=== PATIENT | female | born 1980 | race Caucasian/White ===

== ENCOUNTER 2017-05-21 16:20 | Emergency (ER) | payer OTHER ==
[~2017-05-21] VITALS: Wt 68.2 kg
[2017-05-21] MEDS ORDERED: ONDANSETRON 4 MG INJ IV STA (17:58)
--- NOTE | 2017-05-21 19:36 | RADRPT ---
PROCEDURE: CT Abdomen and Pelvis without contrast CLINICAL INDICATION: Right upper quadrant and left upper quadrant pain, bilateral flank pain TECHNIQUE: Transaxial images were obtained through the abdomen and pelvis on a multi-slice scanner without the intravenous contrast administration. No oral contrast had previously been given. Sagit desean and coronal re-formations were subsequently reconstructed. One or more of the following dose reduction techniques were used: - Automated exposure control. - Adjustment of the mA and/or kV according to patient size. - Use of iterative reconstruction technique. Radiation dose: CTDIvol = 18.44 mGy; DLP = 1047.30 mGy-cm. COMPARISON: No prior studies are available for comparison. FINDINGS: Lung bases: The visualized lung bases appear unremarkable. Liver: Normal in size and in attenuation. There is no focal lesion. Gallbladder: The gallbladder is distended and there is cholelithiasis. There is no gallbladder wall thickening. Bile ducts: The intra and extrahepatic bile ducts are normal in caliber. Pancreas: Appears normal with no mass or inflammation evident. Spleen: The spleen is upper normal in size. Adrenals: Normal with no mass identified. Kidneys, ureters and bladder: The kidneys are normal in size and there is no mass, pathological calc ification, or hydronephrosis evident. There is no perinephric stranding. The ureters are normal in c aliber and no ureteroliths are identified. The bladder is poorly distended. Reproductive organs: The uterus is prominent and is lobulated in contour compatible with uterine fib roids.. A 2 cm Nabothian cyst is evident. No adnexal mass is evident. Stomach and bowel: The stomach appears unremarkable. The small bowel appears normal. Diverticuli are seen scattered through the colon but there is no evidence of bowel obstruction or inflammation. Appendix: A normal vermiform appendix is evident. Peritoneum: No free intraperitoneal fluid or air is identified. A small fat containing umbilical and bilateral inguinal hernias are evident. Aorta: Normal in caliber with no aneurysmal dilatation. IVC: Unremarkable. Lymph nodes: No pathologically enlarged nodes are identified. Osseous structures: The osseous elements appear intact. IMPRESSION: 1. Multiple gallstones are evident. There is no gallbladder wall thickening, bile duct dilatation o r pancreatic pathology evident. 2. Scattered diverticuli are seen in the colon without evidence of bowel obstruction or inflammatio n. A normal vermiform appendix is evident. 3. There is no evidence of urinary outflow obstruction or ureterolithiasis. The bladder is suboptim ally distended. 4. Prominent fibroid uterus with a 2 cm Nabothian cyst seen in the cervix. 5. There is no free intraperitoneal fluid or air. There are small fat containing umbilical and bila teral inguinal hernias. 6. The spleen is borderline enlarged. Physician Jaclyn Date Time Electronically viewed and signed by Brannon Quintana Physician on 05/21/2017 19:36 /
[2017-05-21] MEDS ORDERED: KETOROLAC 30 MG INJ IM STA (19:40)
[2017-05-21] MEDS ORDERED: KETOROLAC 30 MG INJ IV STA (19:47)
[2017-05-21] MEDS ORDERED: IBUP-1542 PO (19:50)
[2017-05-21] MEDS ORDERED: ONDA4TAB14 PO (19:51)
[2017-05-21] MEDS ORDERED: NITR-58 PO (20:13)
--- NOTE | 2017-05-21 20:13 | ERD ---
ER Documentation Chief Complaint Chief Complaint back and abd pain HPI Patient is a 36-year-old female who presents with concerns of right upper quadrant and left upper quadrant pain as well as bilateral flank pain for the last 2 months. Patient describes her pain to be episodic in nature. Patient states that today the pain became gradually worse and more persistent. Patient describes her pain to be the worst in the right upper quadrant. Patient denies any vomiting however she does admit to nausea. Patient denies any fevers or chills. Patient denies any dysuria, hematuria, frequency, urgency. Patient denies any falls or trauma. Patient denies any vaginal bleeding. ROS All systems reviewed and are negative except as per history of present illness. Medications Home Meds Active Scripts Nitrofurantoin Monohyd Macrocr* (Macrobid*) 100 Mg Capsr, 100 MG PO BID for 5 Days, CAP Prov:LIBRADO GONZALZE PA-C 05/21/17 Ondansetron (Ondansetron Odt) 4 Mg Tab.rapdis, 4 MG PO Q6H Y for NAUSEA AND/OR VOMITING, #10 TAB Prov:LIBRADO GONZALEZ PA-C 05/21/17 Ibuprofen* (Motrin*) 600 Mg Tab, 600 MG PO Q6, #30 TAB Prov:LIBRADO GONZALEZ PA-C 05/21/17 Allergies Allergies: Coded Allergies: No Known Allergy (Unverified , 05/21/17) PMhx/Soc Medical and Surgical Hx: pt denies Medical Hx, pt denies Surgical Hx Hx Alcohol Use: No Hx Substance Use: No Hx Tobacco Use: No Smoking Status: Never smoker Physical Exam Vitals Vital Signs Date Time Temp Pulse Resp B/P Pulse Ox O2 Delivery O2 Flow Rate FiO2 05/21/17 16:21 98.3 78 20 125/82 98 Physical Exam GENERAL: Well-developed, well-nourished female. Appears in no acute distress. HEAD: Normocephalic, atraumatic. EYES: Pupils are equally reactive bilaterally. EOMs grossly intact. No conjunctival erythema. ENT: Moist mucous membranes. No uvula deviation. No kissing tonsils. NECK: Supple. No meningismus. Normal range of motion of the neck. LUNG: Clear to auscultation bilaterally. No rhonchi, wheezing, rales or coarse breath sounds. HEART: Regular rate and rhythm. No murmurs, rubs or gallops. ABDOMEN: Soft and nondistended. Tender to palpation in the right upper quadrant and suprapubic region. Positive bowel sounds in all four quadrants. No rebound tenderness, no guarding. (-) McBurney's point tenderness. No CVA tenderness. BACK: No midline tenderness. EXTREMITIES: Equal pulses bilaterally. No peripheral clubbing, cyanosis or edema. No unilateral leg swelling. NEUROLOGIC: Alert and oriented. Moving all four extremities without any difficulty. Normal speech. Steady gait. SKIN: Normal color. Warm and dry. No rashes or lesions. Result Diagram: 05/21/17183905/21/171839 Results 24 hrs Laboratory Tests Test 05/21/17 18:40 White Blood Count 11.310^3/ul Red Blood Count 4.2110^6/ul Hemoglobin 11.6g/dl Hematocrit 36.2% Mean Corpuscular Volume 86.0fl Mean Corpuscular Hemoglobin 27.6pg Mean Corpuscular Hemoglobin Concent 32.0g/dl Red Cell Distribution Width 13.7% Platelet Count 71841^3/UL Mean Platelet Volume 12.0fl Neutrophils % 67.9% Lymphocytes % 26.4% Monocytes % 4.1% Eosinophils % 0.9% Basophils % 0.4% Nucleated Red Blood Cells % 0.0/100WBC Neutrophils # 7.710^3/ul Lymphocytes # 3.010^3/ul Monocytes # 0.510^3/ul Eosinophils # 0.110^3/ul Basophils # 0.110^3/ul Nucleated Red Blood Cells # 0.010^3/ul Urine Color YELLOW Urine Clarity SLIGHTLY CLOUDY Urine pH 5.0 Urine Specific [place] 1.026 Urine Ketones TRACEmg/dL Urine Nitrite NEGATIVEmg/dL Urine Bilirubin NEGATIVEmg/dL Urine Urobilinogen NEGATIVEmg/dL Urine Leukocyte Esterase 2+Jose L/ul Urine Microscopic RBC 0/HPF Urine Microscopic WBC 4/HPF Urine Squamous Epithelial Cells FEW/HPF Urine Bacteria FEW/HPF Urine Mucus FEW/HPF Urine Hemoglobin NEGATIVEmg/dL Urine Glucose NEGATIVEmg/dL Urine Total Protein NEGATIVEmg/dl Sodium Level 143mmol/L Potassium Level 4.0mmol/L Chloride Level 106mmol/L Carbon Dioxide Level 24mmol/L Anion Gap 17 Blood Urea Nitrogen 13mg/dl Creatinine 0.73mg/dl Glucose Level 90mg/dl Calcium Level 9.5mg/dl Total Bilirubin 0.3mg/dl Direct Bilirubin 0.00mg/dl Indirect Bilirubin 0.3mg/dl Aspartate Amino Transf (AST/SGOT) 21IU/L Alanine Aminotransferase (ALT/SGPT) 34IU/L Alkaline Phosphatase 49IU/L Total Protein 7.8g/dl Albumin 4.5g/dl Globulin 3.30g/dl Albumin/Globulin Ratio 1.36 Lipase 95U/L Current Medications Medications (Trade) Dose Ordered Sig/Fili Route PRN Reason Start Time Stop Time Status Last Admin Dose Admin Ondansetron HCl (Zofran Inj) 4 mg ONCE STAT IV 05/21/17 17:58 05/21/17 18:04 DC 05/21/17 18:50 Ketorolac Tromethamine (Toradol) 30 mg ONCE STAT IM 05/21/17 19:40 05/21/17 19:48 DC Ketorolac Tromethamine (Toradol) 30 mg ONCE STAT IV 05/21/17 19:47 05/21/17 19:49 DC 05/21/17 19:50 Procedures/MDM ED COURSE: The patient was stable throughout ED course. I kept the patient and/or family informed of laboratory and diagnostic imaging results throughout the ED course. DIAGNOSTIC IMAGING: Read by radiologist. Patient: NORA GRECO : 1980 Age: 36 Sex: F MR #: [id number] DOS: 05/21/17 1758 Ordering MD: LIBRADO GONZALEZ PA-C Location: [facility] Room/Bed: PROCEDURE: CT Abdomen and Pelvis without contrast CLINICAL INDICATION: Right upper quadrant and left upper quadrant pain, bilateral flank pain TECHNIQUE: Transaxial images were obtained through the abdomen and pelvis on a multi-slice scanner without the intravenous contrast administration. No oral contrast had previously been given. Sagittal and coronal re-formations were subsequently reconstructed. One or more of the following dose reduction techniques were used: - Automated exposure control. - Adjustment of the mA and/or kV according to patient size. - Use of iterative reconstruction technique. Radiation dose: CTDIvol = 18.44 mGy; DLP = 1047.30 mGy-cm. COMPARISON: No prior studies are available for comparison. FINDINGS: Lung bases: The visualized lung bases appear unremarkable. Liver: Normal in size and in attenuation. There is no focal lesion. Gallbladder: The gallbladder is distended and there is cholelithiasis. There is no gallbladder wall thickening. Bile ducts: The intra and extrahepatic bile ducts are normal in caliber. Pancreas: Appears normal with no mass or inflammation evident. Spleen: The spleen is upper normal in size. Adrenals: Normal with no mass identified. Kidneys, ureters and bladder: The kidneys are normal in size and there is no mass, pathological calcification, or hydronephrosis evident. There is no perinephric stranding. The ureters are normal in caliber and no ureteroliths are identified. The bladder is poorly distended. Reproductive organs: The uterus is prominent and is lobulated in contour compatible with uterine fibroids.. A 2 cm Nabothian cyst is evident. No adnexal mass is evident. Stomach and bowel: The stomach appears unremarkable. The small bowel appears normal. Diverticuli are seen scattered through the colon but there is no evidence of bowel obstruction or inflammation. Appendix: A normal vermiform appendix is evident. Peritoneum: No free intraperitoneal fluid or air is identified. A small fat containing umbilical and bilateral inguinal hernias are evident. Aorta: Normal in caliber with no aneurysmal dilatation. IVC: Unremarkable. Lymph nodes: No pathologically enlarged nodes are identified. Osseous structures: The osseous elements appear intact. IMPRESSION: 1. Multiple gallstones are evident. There is no gallbladder wall thickening, bile duct dilatation or pancreatic pathology evident. 2. Scattered diverticuli are seen in the colon without evidence of bowel obstruction or inflammation. A normal vermiform appendix is evident. 3. There is no evidence of urinary outflow obstruction or ureterolithiasis. The bladder is suboptimally distended. 4. Prominent fibroid uterus with a 2 cm Nabothian cyst seen in the cervix. 5. There is no free intraperitoneal fluid or air. There are small fat containing umbilical and bilateral inguinal hernias. 6. The spleen is borderline enlarged. Physician Jaclyn Date Time Electronically viewed and signed by Physician Jaclyn on 05/21/2017 19:36 RH/ CC: LIBRADO GONZALEZ PA-C PROCEDURES: None. MEDICATIONS GIVEN: IV Zofran, Toradol Patient tolerated medication well with no adverse reactions. Patient reported improvement in pain. MEDICAL DECISION MAKING: This is a 36-year-old female who presents with right upper quadrant and left upper quadrant pain for the last 2 months. Patient states her pain became significantly worse today. Patient also admits to nausea. Vital signs were reviewed. Patient is afebrile. CBC showed hemoglobin of 11.6, hematocrit of 36.2, white count of 11.3. CMP showed no evidence of electrolyte abnormalities, severe acidosis, alkalosis , renal failure, or liver disease. Lipase showed no evidence of acute pancreatitis. UA showed 2+ leukocyte esterase, 4 WBCs. Urine test was negative. CT scan abdomen and pelvis without IV contrast: IMPRESSION: 1. Multiple gallstones are evident. There is no gallbladder wall thickening, bile duct dilatation or pancreatic pathology evident. 2. Scattered diverticuli are seen in the colon without evidence of bowel obstruction or inflammation. A normal vermiform appendix is evident. 3. There is no evidence of urinary outflow obstruction or ureterolithiasis. The bladder is suboptimally distended. 4. Prominent fibroid uterus with a 2 cm Nabothian cyst seen in the cervix. 5. There is no free intraperitoneal fluid or air. There are small fat containing umbilical and bilateral inguinal hernias. 6. The spleen is borderline enlarged. At this time, patient's presentation is most consistent with cholelithiasis without cholecystitis, uterine fibroids, UTI. Low suspicion for acute coronary syndrome, AAA, mesenteric ischemia, lower lobe pneumonia, DKA, bowel perforation , bowel obstruction, cholecystitis, choledocholithiasis, ascending cholangitis, pancreatitis, diverticulitis, pyelonephritis, nephrolithiasis, appendicitis, , ectopic , PID, ovarian torsion or tubo-ovarian abscess. PRESCRIPTIONS: Ibuprofen, Zofran, Macrobid DISCHARGE: At this time, patient is stable for discharge and outpatient management. Patient was given a copy of all imaging studies and blood work obtained today. I have instructed the patient to follow-up with his/her primary care physician in 1-2 days. I have instructed the patient to promptly return to the ER at any time for any new or worsening symptoms including increased pain, nausea, vomiting, diarrhea, fever, weakness or LOC. The patient and/or family expressed understanding of and agreement with this plan. All questions were answered. Home care instructions were provided. Disclaimer: Inadvertent spelling and grammatical errors are likely due to EHR/ dictation software use and do not reflect on the overall quality of patient care. Also, please note that the electronic time recorded on this note does not necessarily reflect the actual time of the patient encounter. Departure Diagnosis: Primary Impression: Cholelithiasis without cholecystitis Additional Impressions: Abdominal pain Abdominal location: upper abdomen, unspecified Qualified Code: R10.10 - Pain of upper abdomen Fibroids Uterine leiomyoma location: unspecified location Qualified Code: D25.9 - Uterine leiomyoma, unspecified location UTI (urinary tract infection) Urinary tract infection type: site unspecified Hematuria presence: without hematuria Qualified Code: N39.0 - Urinary tract infection without hematuria, site unspecified Condition: Stable Patient Instructions: Gallstones Referrals: MAGALY KULKARNI MD, KAMBIZ M.D. [facility] YOU HAVE RECEIVED A MEDICAL SCREENING EXAM AND THE RESULTS INDICATE THAT YOU DO NOT HAVE A CONDITION THAT REQUIRES URGENT TREATMENT IN THE EMERGENCY DEPARTMENT. FURTHER EVALUATION AND TREATMENT OF YOUR CONDITION CAN WAIT UNTIL YOU ARE SEEN IN YOUR DOCTORS OFFICE WITHIN THE NEXT 1-2 DAYS. IT IS YOUR RESPONSIBILITY TO MAKE AN APPOINTMENT FOR FOLOW-UP CARE. IF YOU HAVE A PRIMARY DOCTOR --you should call your primary doctor and schedule an appointment IF YOU DO NOT HAVE A PRIMARY DOCTOR YOU CAN CALL OUR PHYSICIAN REFERRAL HOTLINE AT IF YOU CAN NOT AFFORD TO SEE A PHYSICIAN YOU CAN CHOSE FROM THE FOLLOWING [facility] [address] [facility] [address] [facility] [address] [facility] [address] [facility] [address] [facility]. [facility]. [address] [facility]. [facility] YOU HAVE RECEIVED A MEDICAL SCREENING EXAM AND THE RESULTS INDICATE THAT YOU DO NOT HAVE A CONDITION THAT REQUIRES URGENT TREATMENT IN THE EMERGENCY DEPARTMENT. FURTHER EVALUATION AND TREATMENT OF YOUR CONDITION CAN WAIT UNTIL YOU ARE SEEN IN YOUR DOCTORS OFFICE WITHIN THE NEXT 1-2 DAYS. IT IS YOUR RESPONSIBILITY TO MAKE AN APPOINTMENT FOR FOLOW-UP CARE. IF YOU HAVE A PRIMARY DOCTOR --you should call your primary doctor and schedule and appointment IF YOU DO NOT HAVE A PRIMARY DOCTOR YOU CAN CALL OUR PHYSICIAN REFERRAL HOTLINE AT . IF YOU CAN NOT AFFORD TO SEE A PHYSICIAN YOU CAN CHOSE FROM THE FOLLOWING [facility] INSTITUTIONS: [facility] [address] [place] [address] [facility] [address] [place] [address] [facility] [address] [place] [address] [employer] [id number] [facility] [address] [place] [address]ABUSLEME ANTIONE [address] [place] [address] [address] COHN TAMARACK [address] [place] [address] ISAEL ESPINOSA [address] [facility], [address] [address] [facility] [address] [place] [address] [facility] [address] [place] [address] [phone] [address] [facility] [address] - VIVIANA SOARES [address], [facility] [address] [address] [address] [facility] [address], [facility] [address] [address] [address] [place] [address] Additional Instructions: Call your primary care doctor TOMORROW for an appointment during the next 1-2 days.See the doctor sooner or return here if your condition worsens before your appointment time. Follow-up with a general surgeon for further management of your gallstones. Follow-up with [employer] for further management of your fibroid. LIBRADO GONZALEZ PA-C May 21, 2017 20:13
--- NOTE | 2017-05-21 20:13 | ERD ---
ER Documentation Chief Complaint Chief Complaint back and abd pain HPI Patient is a 36-year-old female who presents with concerns of right upper quadrant and left upper quadrant pain as well as bilateral flank pain for the last 2 months. Patient describes her pain to be episodic in nature. Patient states that today the pain became gradually worse and more persistent. Patient describes her pain to be the worst in the right upper quadrant. Patient denies any vomiting however she does admit to nausea. Patient denies any fevers or chills. Patient denies any dysuria, hematuria, frequency, urgency. Patient denies any falls or trauma. Patient denies any vaginal bleeding. ROS All systems reviewed and are negative except as per history of present illness. Medications Home Meds Active Scripts Nitrofurantoin Monohyd Macrocr* (Macrobid*) 100 Mg Capsr, 100 MG PO BID for 5 Days, CAP Prov:LIBRADO GONZALEZ PA-C 05/21/17 Ondansetron (Ondansetron Odt) 4 Mg Tab.rapdis, 4 MG PO Q6H Y for NAUSEA AND/OR VOMITING, #10 TAB Prov:LIBRADO GONZALEZ PA-C 05/21/17 Ibuprofen* (Motrin*) 600 Mg Tab, 600 MG PO Q6, #30 TAB Prov:LIBRADO GONZALEZ PA-C 05/21/17 Allergies Allergies: Coded Allergies: No Known Allergy (Unverified , 05/21/17) PMhx/Soc Medical and Surgical Hx: pt denies Medical Hx, pt denies Surgical Hx Hx Alcohol Use: No Hx Substance Use: No Hx Tobacco Use: No Smoking Status: Never smoker Physical Exam Vitals Vital Signs Date Time Temp Pulse Resp B/P Pulse Ox O2 Delivery O2 Flow Rate FiO2 05/21/17 16:21 98.3 78 20 125/82 98 Physical Exam GENERAL: Well-developed, well-nourished female. Appears in no acute distress. HEAD: Normocephalic, atraumatic. EYES: Pupils are equally reactive bilaterally. EOMs grossly intact. No conjunctival erythema. ENT: Moist mucous membranes. No uvula deviation. No kissing tonsils. NECK: Supple. No meningismus. Normal range of motion of the neck. LUNG: Clear to auscultation bilaterally. No rhonchi, wheezing, rales or coarse breath sounds. HEART: Regular rate and rhythm. No murmurs, rubs or gallops. ABDOMEN: Soft and nondistended. Tender to palpation in the right upper quadrant and suprapubic region. Positive bowel sounds in all four quadrants. No rebound tenderness, no guarding. (-) McBurney's point tenderness. No CVA tenderness. BACK: No midline tenderness. EXTREMITIES: Equal pulses bilaterally. No peripheral clubbing, cyanosis or edema. No unilateral leg swelling. NEUROLOGIC: Alert and oriented. Moving all four extremities without any difficulty. Normal speech. Steady gait. SKIN: Normal color. Warm and dry. No rashes or lesions. Result Diagram: 05/21/17183905/21/171839 Results 24 hrs Laboratory Tests Test 05/21/17 18:40 White Blood Count 11.310^3/ul Red Blood Count 4.2110^6/ul Hemoglobin 11.6g/dl Hematocrit 36.2% Mean Corpuscular Volume 86.0fl Mean Corpuscular Hemoglobin 27.6pg Mean Corpuscular Hemoglobin Concent 32.0g/dl Red Cell Distribution Width 13.7% Platelet Count 89729^3/UL Mean Platelet Volume 12.0fl Neutrophils % 67.9% Lymphocytes % 26.4% Monocytes % 4.1% Eosinophils % 0.9% Basophils % 0.4% Nucleated Red Blood Cells % 0.0/100WBC Neutrophils # 7.710^3/ul Lymphocytes # 3.010^3/ul Monocytes # 0.510^3/ul Eosinophils # 0.110^3/ul Basophils # 0.110^3/ul Nucleated Red Blood Cells # 0.010^3/ul Urine Color YELLOW Urine Clarity SLIGHTLY CLOUDY Urine pH 5.0 Urine Specific [place] 1.026 Urine Ketones TRACEmg/dL Urine Nitrite NEGATIVEmg/dL Urine Bilirubin NEGATIVEmg/dL Urine Urobilinogen NEGATIVEmg/dL Urine Leukocyte Esterase 2+Jose L/ul Urine Microscopic RBC 0/HPF Urine Microscopic WBC 4/HPF Urine Squamous Epithelial Cells FEW/HPF Urine Bacteria FEW/HPF Urine Mucus FEW/HPF Urine Hemoglobin NEGATIVEmg/dL Urine Glucose NEGATIVEmg/dL Urine Total Protein NEGATIVEmg/dl Sodium Level 143mmol/L Potassium Level 4.0mmol/L Chloride Level 106mmol/L Carbon Dioxide Level 24mmol/L Anion Gap 17 Blood Urea Nitrogen 13mg/dl Creatinine 0.73mg/dl Glucose Level 90mg/dl Calcium Level 9.5mg/dl Total Bilirubin 0.3mg/dl Direct Bilirubin 0.00mg/dl Indirect Bilirubin 0.3mg/dl Aspartate Amino Transf (AST/SGOT) 21IU/L Alanine Aminotransferase (ALT/SGPT) 34IU/L Alkaline Phosphatase 49IU/L Total Protein 7.8g/dl Albumin 4.5g/dl Globulin 3.30g/dl Albumin/Globulin Ratio 1.36 Lipase 95U/L Current Medications Medications (Trade) Dose Ordered Sig/Fili Route PRN Reason Start Time Stop Time Status Last Admin Dose Admin Ondansetron HCl (Zofran Inj) 4 mg ONCE STAT IV 05/21/17 17:58 05/21/17 18:04 DC 05/21/17 18:50 Ketorolac Tromethamine (Toradol) 30 mg ONCE STAT IM 05/21/17 19:40 05/21/17 19:48 DC Ketorolac Tromethamine (Toradol) 30 mg ONCE STAT IV 05/21/17 19:47 05/21/17 19:49 DC 05/21/17 19:50 Procedures/MDM ED COURSE: The patient was stable throughout ED course. I kept the patient and/or family informed of laboratory and diagnostic imaging results throughout the ED course. DIAGNOSTIC IMAGING: Read by radiologist. Patient: NORA GRECO : 1980 Age: 36 Sex: F MR #: [id number] DOS: 05/21/17 1758 Ordering MD: LIBRADO GONZALEZ PA-C Location: [facility] Room/Bed: PROCEDURE: CT Abdomen and Pelvis without contrast CLINICAL INDICATION: Right upper quadrant and left upper quadrant pain, bilateral flank pain TECHNIQUE: Transaxial images were obtained through the abdomen and pelvis on a multi-slice scanner without the intravenous contrast administration. No oral contrast had previously been given. Sagittal and coronal re-formations were subsequently reconstructed. One or more of the following dose reduction techniques were used: - Automated exposure control. - Adjustment of the mA and/or kV according to patient size. - Use of iterative reconstruction technique. Radiation dose: CTDIvol = 18.44 mGy; DLP = 1047.30 mGy-cm. COMPARISON: No prior studies are available for comparison. FINDINGS: Lung bases: The visualized lung bases appear unremarkable. Liver: Normal in size and in attenuation. There is no focal lesion. Gallbladder: The gallbladder is distended and there is cholelithiasis. There is no gallbladder wall thickening. Bile ducts: The intra and extrahepatic bile ducts are normal in caliber. Pancreas: Appears normal with no mass or inflammation evident. Spleen: The spleen is upper normal in size. Adrenals: Normal with no mass identified. Kidneys, ureters and bladder: The kidneys are normal in size and there is no mass, pathological calcification, or hydronephrosis evident. There is no perinephric stranding. The ureters are normal in caliber and no ureteroliths are identified. The bladder is poorly distended. Reproductive organs: The uterus is prominent and is lobulated in contour compatible with uterine fibroids.. A 2 cm Nabothian cyst is evident. No adnexal mass is evident. Stomach and bowel: The stomach appears unremarkable. The small bowel appears normal. Diverticuli are seen scattered through the colon but there is no evidence of bowel obstruction or inflammation. Appendix: A normal vermiform appendix is evident. Peritoneum: No free intraperitoneal fluid or air is identified. A small fat containing umbilical and bilateral inguinal hernias are evident. Aorta: Normal in caliber with no aneurysmal dilatation. IVC: Unremarkable. Lymph nodes: No pathologically enlarged nodes are identified. Osseous structures: The osseous elements appear intact. IMPRESSION: 1. Multiple gallstones are evident. There is no gallbladder wall thickening, bile duct dilatation or pancreatic pathology evident. 2. Scattered diverticuli are seen in the colon without evidence of bowel obstruction or inflammation. A normal vermiform appendix is evident. 3. There is no evidence of urinary outflow obstruction or ureterolithiasis. The bladder is suboptimally distended. 4. Prominent fibroid uterus with a 2 cm Nabothian cyst seen in the cervix. 5. There is no free intraperitoneal fluid or air. There are small fat containing umbilical and bilateral inguinal hernias. 6. The spleen is borderline enlarged. Physician Jaclyn Date Time Electronically viewed and signed by Physician Jaclyn on 05/21/2017 19:36 RH/ CC: LIBRADO GONZALEZ PA-C PROCEDURES: None. MEDICATIONS GIVEN: IV Zofran, Toradol Patient tolerated medication well with no adverse reactions. Patient reported improvement in pain. MEDICAL DECISION MAKING: This is a 36-year-old female who presents with right upper quadrant and left upper quadrant pain for the last 2 months. Patient states her pain became significantly worse today. Patient also admits to nausea. Vital signs were reviewed. Patient is afebrile. CBC showed hemoglobin of 11.6, hematocrit of 36.2, white count of 11.3. CMP showed no evidence of electrolyte abnormalities, severe acidosis, alkalosis , renal failure, or liver disease. Lipase showed no evidence of acute pancreatitis. UA showed 2+ leukocyte esterase, 4 WBCs. Urine test was negative. CT scan abdomen and pelvis without IV contrast: IMPRESSION: 1. Multiple gallstones are evident. There is no gallbladder wall thickening, bile duct dilatation or pancreatic pathology evident. 2. Scattered diverticuli are seen in the colon without evidence of bowel obstruction or inflammation. A normal vermiform appendix is evident. 3. There is no evidence of urinary outflow obstruction or ureterolithiasis. The bladder is suboptimally distended. 4. Prominent fibroid uterus with a 2 cm Nabothian cyst seen in the cervix. 5. There is no free intraperitoneal fluid or air. There are small fat containing umbilical and bilateral inguinal hernias. 6. The spleen is borderline enlarged. At this time, patient's presentation is most consistent with cholelithiasis without cholecystitis, uterine fibroids, UTI. Low suspicion for acute coronary syndrome, AAA, mesenteric ischemia, lower lobe pneumonia, DKA, bowel perforation , bowel obstruction, cholecystitis, choledocholithiasis, ascending cholangitis, pancreatitis, diverticulitis, pyelonephritis, nephrolithiasis, appendicitis, , ectopic , PID, ovarian torsion or tubo-ovarian abscess. PRESCRIPTIONS: Ibuprofen, Zofran, Macrobid DISCHARGE: At this time, patient is stable for discharge and outpatient management. Patient was given a copy of all imaging studies and blood work obtained today. I have instructed the patient to follow-up with his/her primary care physician in 1-2 days. I have instructed the patient to promptly return to the ER at any time for any new or worsening symptoms including increased pain, nausea, vomiting, diarrhea, fever, weakness or LOC. The patient and/or family expressed understanding of and agreement with this plan. All questions were answered. Home care instructions were provided. Disclaimer: Inadvertent spelling and grammatical errors are likely due to EHR/ dictation software use and do not reflect on the overall quality of patient care. Also, please note that the electronic time recorded on this note does not necessarily reflect the actual time of the patient encounter. Departure Diagnosis: Primary Impression: Cholelithiasis without cholecystitis Additional Impressions: Abdominal pain Abdominal location: upper abdomen, unspecified Qualified Code: R10.10 - Pain of upper abdomen Fibroids Uterine leiomyoma location: unspecified location Qualified Code: D25.9 - Uterine leiomyoma, unspecified location UTI (urinary tract infection) Urinary tract infection type: site unspecified Hematuria presence: without hematuria Qualified Code: N39.0 - Urinary tract infection without hematuria, site unspecified Condition: Stable Patient Instructions: Gallstones Referrals: MAGALY KULKARNI MD, KAMBIZ M.D. [facility] YOU HAVE RECEIVED A MEDICAL SCREENING EXAM AND THE RESULTS INDICATE THAT YOU DO NOT HAVE A CONDITION THAT REQUIRES URGENT TREATMENT IN THE EMERGENCY DEPARTMENT. FURTHER EVALUATION AND TREATMENT OF YOUR CONDITION CAN WAIT UNTIL YOU ARE SEEN IN YOUR DOCTORS OFFICE WITHIN THE NEXT 1-2 DAYS. IT IS YOUR RESPONSIBILITY TO MAKE AN APPOINTMENT FOR FOLOW-UP CARE. IF YOU HAVE A PRIMARY DOCTOR --you should call your primary doctor and schedule an appointment IF YOU DO NOT HAVE A PRIMARY DOCTOR YOU CAN CALL OUR PHYSICIAN REFERRAL HOTLINE AT IF YOU CAN NOT AFFORD TO SEE A PHYSICIAN YOU CAN CHOSE FROM THE FOLLOWING [facility] [address] [facility] [address] [facility] [address] [facility] [address] [facility] [address] [facility]. [facility]. [address] [facility]. [facility] YOU HAVE RECEIVED A MEDICAL SCREENING EXAM AND THE RESULTS INDICATE THAT YOU DO NOT HAVE A CONDITION THAT REQUIRES URGENT TREATMENT IN THE EMERGENCY DEPARTMENT. FURTHER EVALUATION AND TREATMENT OF YOUR CONDITION CAN WAIT UNTIL YOU ARE SEEN IN YOUR DOCTORS OFFICE WITHIN THE NEXT 1-2 DAYS. IT IS YOUR RESPONSIBILITY TO MAKE AN APPOINTMENT FOR FOLOW-UP CARE. IF YOU HAVE A PRIMARY DOCTOR --you should call your primary doctor and schedule and appointment IF YOU DO NOT HAVE A PRIMARY DOCTOR YOU CAN CALL OUR PHYSICIAN REFERRAL HOTLINE AT . IF YOU CAN NOT AFFORD TO SEE A PHYSICIAN YOU CAN CHOSE FROM THE FOLLOWING [facility] INSTITUTIONS: [facility] [address] [place] [address] [facility] [address] [place] [address] [facility] [address] [place] [address] [facility] [address] [facility] [address] [place] [address]USLEME ANT[address] [place] [address] [address] [place] [address] [place] [address] ISA[address] [place]OSA [address] [facility] [address] [facility] [address] [place] [address] [facility] [address] [place] [address] [phone] [facility] [id number] - [place]IV[place]NA SOARES [address], [facility] [address] [address] [address] [facility] [address], [facility] [address] [address] [address] [place] [address] Additional Instructions: Call your primary care doctor TOMORROW for an appointment during the next 1-2 days.See the doctor sooner or return here if your condition worsens before your appointment time. Follow-up with a general surgeon for further management of your gallstones. Follow-up with [facility] for further management of your fibroid. LIBRADO GONZALEZ PA-C May 21, 2017 20:13
--- NOTE | 2017-05-21 20:13 | ERD ---
ER Documentation Chief Complaint Chief Complaint back and abd pain HPI Patient is a 36-year-old female who presents with concerns of right upper quadrant and left upper quadrant pain as well as bilateral flank pain for the last 2 months. Patient describes her pain to be episodic in nature. Patient states that today the pain became gradually worse and more persistent. Patient describes her pain to be the worst in the right upper quadrant. Patient denies any vomiting however she does admit to nausea. Patient denies any fevers or chills. Patient denies any dysuria, hematuria, frequency, urgency. Patient denies any falls or trauma. Patient denies any vaginal bleeding. ROS All systems reviewed and are negative except as per history of present illness. Medications Home Meds Active Scripts Nitrofurantoin Monohyd Macrocr* (Macrobid*) 100 Mg Capsr, 100 MG PO BID for 5 Days, CAP Prov:LIBRADO GONZALEZ PA-C 05/21/17 Ondansetron (Ondansetron Odt) 4 Mg Tab.rapdis, 4 MG PO Q6H Y for NAUSEA AND/OR VOMITING, #10 TAB Prov:LIBRADO GONZALEZ PA-C 05/21/17 Ibuprofen* (Motrin*) 600 Mg Tab, 600 MG PO Q6, #30 TAB Prov:LIBRADO GONZALEZ PA-C 05/21/17 Allergies Allergies: Coded Allergies: No Known Allergy (Unverified , 05/21/17) PMhx/Soc Medical and Surgical Hx: pt denies Medical Hx, pt denies Surgical Hx Hx Alcohol Use: No Hx Substance Use: No Hx Tobacco Use: No Smoking Status: Never smoker Physical Exam Vitals Vital Signs Date Time Temp Pulse Resp B/P Pulse Ox O2 Delivery O2 Flow Rate FiO2 05/21/17 16:21 98.3 78 20 125/82 98 Physical Exam GENERAL: Well-developed, well-nourished female. Appears in no acute distress. HEAD: Normocephalic, atraumatic. EYES: Pupils are equally reactive bilaterally. EOMs grossly intact. No conjunctival erythema. ENT: Moist mucous membranes. No uvula deviation. No kissing tonsils. NECK: Supple. No meningismus. Normal range of motion of the neck. LUNG: Clear to auscultation bilaterally. No rhonchi, wheezing, rales or coarse breath sounds. HEART: Regular rate and rhythm. No murmurs, rubs or gallops. ABDOMEN: Soft and nondistended. Tender to palpation in the right upper quadrant and suprapubic region. Positive bowel sounds in all four quadrants. No rebound tenderness, no guarding. (-) McBurney's point tenderness. No CVA tenderness. BACK: No midline tenderness. EXTREMITIES: Equal pulses bilaterally. No peripheral clubbing, cyanosis or edema. No unilateral leg swelling. NEUROLOGIC: Alert and oriented. Moving all four extremities without any difficulty. Normal speech. Steady gait. SKIN: Normal color. Warm and dry. No rashes or lesions. Result Diagram: 05/21/17183905/21/171839 Results 24 hrs Laboratory Tests Test 05/21/17 18:40 White Blood Count 11.310^3/ul Red Blood Count 4.2110^6/ul Hemoglobin 11.6g/dl Hematocrit 36.2% Mean Corpuscular Volume 86.0fl Mean Corpuscular Hemoglobin 27.6pg Mean Corpuscular Hemoglobin Concent 32.0g/dl Red Cell Distribution Width 13.7% Platelet Count 74999^3/UL Mean Platelet Volume 12.0fl Neutrophils % 67.9% Lymphocytes % 26.4% Monocytes % 4.1% Eosinophils % 0.9% Basophils % 0.4% Nucleated Red Blood Cells % 0.0/100WBC Neutrophils # 7.710^3/ul Lymphocytes # 3.010^3/ul Monocytes # 0.510^3/ul Eosinophils # 0.110^3/ul Basophils # 0.110^3/ul Nucleated Red Blood Cells # 0.010^3/ul Urine Color YELLOW Urine Clarity SLIGHTLY CLOUDY Urine pH 5.0 Urine Specific [place] 1.026 Urine Ketones TRACEmg/dL Urine Nitrite NEGATIVEmg/dL Urine Bilirubin NEGATIVEmg/dL Urine Urobilinogen NEGATIVEmg/dL Urine Leukocyte Esterase 2+Jose L/ul Urine Microscopic RBC 0/HPF Urine Microscopic WBC 4/HPF Urine Squamous Epithelial Cells FEW/HPF Urine Bacteria FEW/HPF Urine Mucus FEW/HPF Urine Hemoglobin NEGATIVEmg/dL Urine Glucose NEGATIVEmg/dL Urine Total Protein NEGATIVEmg/dl Sodium Level 143mmol/L Potassium Level 4.0mmol/L Chloride Level 106mmol/L Carbon Dioxide Level 24mmol/L Anion Gap 17 Blood Urea Nitrogen 13mg/dl Creatinine 0.73mg/dl Glucose Level 90mg/dl Calcium Level 9.5mg/dl Total Bilirubin 0.3mg/dl Direct Bilirubin 0.00mg/dl Indirect Bilirubin 0.3mg/dl Aspartate Amino Transf (AST/SGOT) 21IU/L Alanine Aminotransferase (ALT/SGPT) 34IU/L Alkaline Phosphatase 49IU/L Total Protein 7.8g/dl Albumin 4.5g/dl Globulin 3.30g/dl Albumin/Globulin Ratio 1.36 Lipase 95U/L Current Medications Medications (Trade) Dose Ordered Sig/Fili Route PRN Reason Start Time Stop Time Status Last Admin Dose Admin Ondansetron HCl (Zofran Inj) 4 mg ONCE STAT IV 05/21/17 17:58 05/21/17 18:04 DC 05/21/17 18:50 Ketorolac Tromethamine (Toradol) 30 mg ONCE STAT IM 05/21/17 19:40 05/21/17 19:48 DC Ketorolac Tromethamine (Toradol) 30 mg ONCE STAT IV 05/21/17 19:47 05/21/17 19:49 DC 05/21/17 19:50 Procedures/MDM ED COURSE: The patient was stable throughout ED course. I kept the patient and/or family informed of laboratory and diagnostic imaging results throughout the ED course. DIAGNOSTIC IMAGING: Read by radiologist. Patient: NORA GRECO : 1980 Age: 36 Sex: F MR #: [id number] DOS: 05/21/17 1758 Ordering MD: LIBRADO GONZALEZ PA-C Location: [facility] Room/Bed: PROCEDURE: CT Abdomen and Pelvis without contrast CLINICAL INDICATION: Right upper quadrant and left upper quadrant pain, bilateral flank pain TECHNIQUE: Transaxial images were obtained through the abdomen and pelvis on a multi-slice scanner without the intravenous contrast administration. No oral contrast had previously been given. Sagittal and coronal re-formations were subsequently reconstructed. One or more of the following dose reduction techniques were used: - Automated exposure control. - Adjustment of the mA and/or kV according to patient size. - Use of iterative reconstruction technique. Radiation dose: CTDIvol = 18.44 mGy; DLP = 1047.30 mGy-cm. COMPARISON: No prior studies are available for comparison. FINDINGS: Lung bases: The visualized lung bases appear unremarkable. Liver: Normal in size and in attenuation. There is no focal lesion. Gallbladder: The gallbladder is distended and there is cholelithiasis. There is no gallbladder wall thickening. Bile ducts: The intra and extrahepatic bile ducts are normal in caliber. Pancreas: Appears normal with no mass or inflammation evident. Spleen: The spleen is upper normal in size. Adrenals: Normal with no mass identified. Kidneys, ureters and bladder: The kidneys are normal in size and there is no mass, pathological calcification, or hydronephrosis evident. There is no perinephric stranding. The ureters are normal in caliber and no ureteroliths are identified. The bladder is poorly distended. Reproductive organs: The uterus is prominent and is lobulated in contour compatible with uterine fibroids.. A 2 cm Nabothian cyst is evident. No adnexal mass is evident. Stomach and bowel: The stomach appears unremarkable. The small bowel appears normal. Diverticuli are seen scattered through the colon but there is no evidence of bowel obstruction or inflammation. Appendix: A normal vermiform appendix is evident. Peritoneum: No free intraperitoneal fluid or air is identified. A small fat containing umbilical and bilateral inguinal hernias are evident. Aorta: Normal in caliber with no aneurysmal dilatation. IVC: Unremarkable. Lymph nodes: No pathologically enlarged nodes are identified. Osseous structures: The osseous elements appear intact. IMPRESSION: 1. Multiple gallstones are evident. There is no gallbladder wall thickening, bile duct dilatation or pancreatic pathology evident. 2. Scattered diverticuli are seen in the colon without evidence of bowel obstruction or inflammation. A normal vermiform appendix is evident. 3. There is no evidence of urinary outflow obstruction or ureterolithiasis. The bladder is suboptimally distended. 4. Prominent fibroid uterus with a 2 cm Nabothian cyst seen in the cervix. 5. There is no free intraperitoneal fluid or air. There are small fat containing umbilical and bilateral inguinal hernias. 6. The spleen is borderline enlarged. Physician Jaclyn Date Time Electronically viewed and signed by Physician Jaclyn on 05/21/2017 19:36 RH/ CC: LIBRADO GONZALEZ PA-C PROCEDURES: None. MEDICATIONS GIVEN: IV Zofran, Toradol Patient tolerated medication well with no adverse reactions. Patient reported improvement in pain. MEDICAL DECISION MAKING: This is a 36-year-old female who presents with right upper quadrant and left upper quadrant pain for the last 2 months. Patient states her pain became significantly worse today. Patient also admits to nausea. Vital signs were reviewed. Patient is afebrile. CBC showed hemoglobin of 11.6, hematocrit of 36.2, white count of 11.3. CMP showed no evidence of electrolyte abnormalities, severe acidosis, alkalosis , renal failure, or liver disease. Lipase showed no evidence of acute pancreatitis. UA showed 2+ leukocyte esterase, 4 WBCs. Urine test was negative. CT scan abdomen and pelvis without IV contrast: IMPRESSION: 1. Multiple gallstones are evident. There is no gallbladder wall thickening, bile duct dilatation or pancreatic pathology evident. 2. Scattered diverticuli are seen in the colon without evidence of bowel obstruction or inflammation. A normal vermiform appendix is evident. 3. There is no evidence of urinary outflow obstruction or ureterolithiasis. The bladder is suboptimally distended. 4. Prominent fibroid uterus with a 2 cm Nabothian cyst seen in the cervix. 5. There is no free intraperitoneal fluid or air. There are small fat containing umbilical and bilateral inguinal hernias. 6. The spleen is borderline enlarged. At this time, patient's presentation is most consistent with cholelithiasis without cholecystitis, uterine fibroids, UTI. Low suspicion for acute coronary syndrome, AAA, mesenteric ischemia, lower lobe pneumonia, DKA, bowel perforation , bowel obstruction, cholecystitis, choledocholithiasis, ascending cholangitis, pancreatitis, diverticulitis, pyelonephritis, nephrolithiasis, appendicitis, , ectopic , PID, ovarian torsion or tubo-ovarian abscess. PRESCRIPTIONS: Ibuprofen, Zofran, Macrobid DISCHARGE: At this time, patient is stable for discharge and outpatient management. Patient was given a copy of all imaging studies and blood work obtained today. I have instructed the patient to follow-up with his/her primary care physician in 1-2 days. I have instructed the patient to promptly return to the ER at any time for any new or worsening symptoms including increased pain, nausea, vomiting, diarrhea, fever, weakness or LOC. The patient and/or family expressed understanding of and agreement with this plan. All questions were answered. Home care instructions were provided. Disclaimer: Inadvertent spelling and grammatical errors are likely due to EHR/ dictation software use and do not reflect on the overall quality of patient care. Also, please note that the electronic time recorded on this note does not necessarily reflect the actual time of the patient encounter. Departure Diagnosis: Primary Impression: Cholelithiasis without cholecystitis Additional Impressions: Abdominal pain Abdominal location: upper abdomen, unspecified Qualified Code: R10.10 - Pain of upper abdomen Fibroids Uterine leiomyoma location: unspecified location Qualified Code: D25.9 - Uterine leiomyoma, unspecified location UTI (urinary tract infection) Urinary tract infection type: site unspecified Hematuria presence: without hematuria Qualified Code: N39.0 - Urinary tract infection without hematuria, site unspecified Condition: Stable Patient Instructions: Gallstones Referrals: MAGALY KULKARNI MD, KAMBIZ M.D. [facility] YOU HAVE RECEIVED A MEDICAL SCREENING EXAM AND THE RESULTS INDICATE THAT YOU DO NOT HAVE A CONDITION THAT REQUIRES URGENT TREATMENT IN THE EMERGENCY DEPARTMENT. FURTHER EVALUATION AND TREATMENT OF YOUR CONDITION CAN WAIT UNTIL YOU ARE SEEN IN YOUR DOCTORS OFFICE WITHIN THE NEXT 1-2 DAYS. IT IS YOUR RESPONSIBILITY TO MAKE AN APPOINTMENT FOR FOLOW-UP CARE. IF YOU HAVE A PRIMARY DOCTOR --you should call your primary doctor and schedule an appointment IF YOU DO NOT HAVE A PRIMARY DOCTOR YOU CAN CALL OUR PHYSICIAN REFERRAL HOTLINE AT IF YOU CAN NOT AFFORD TO SEE A PHYSICIAN YOU CAN CHOSE FROM THE FOLLOWING [facility] CLINICS [facility] [address] [facility] [address] [facility] [address] [facility] [address] [facility] [address] [facility]. [facility]. [address] [facility]. [facility] YOU HAVE RECEIVED A MEDICAL SCREENING EXAM AND THE RESULTS INDICATE THAT YOU DO NOT HAVE A CONDITION THAT REQUIRES URGENT TREATMENT IN THE EMERGENCY DEPARTMENT. FURTHER EVALUATION AND TREATMENT OF YOUR CONDITION CAN WAIT UNTIL YOU ARE SEEN IN YOUR DOCTORS OFFICE WITHIN THE NEXT 1-2 DAYS. IT IS YOUR RESPONSIBILITY TO MAKE AN APPOINTMENT FOR FOLOW-UP CARE. IF YOU HAVE A PRIMARY DOCTOR --you should call your primary doctor and schedule and appointment IF YOU DO NOT HAVE A PRIMARY DOCTOR YOU CAN CALL OUR PHYSICIAN REFERRAL HOTLINE AT . IF YOU CAN NOT AFFORD TO SEE A PHYSICIAN YOU CAN CHOSE FROM THE FOLLOWING [facility] INSTITUTIONS: [facility] [address] [place] [address] [facility] [address] [place] [address] [facility] [address] [place] [address] [employer] [address] [facility] [address] [place] [address]USLEME ANT[address] [place] [address] [address] [address] [place] [address] ISAEL [address]INOSA [address] [facility] [address] [address] [facility] [address] [place] [address] [facility] [address] [place] [address] [phone] [facility] [address] - [place]IVIANA SOARES [address], [facility] [address] [address] [address] [facility] [address], [facility] [address] [address] [place] [address] Additional Instructions: Call your primary care doctor TOMORROW for an appointment during the next 1-2 days.See the doctor sooner or return here if your condition worsens before your appointment time. Follow-up with a general surgeon for further management of your gallstones. Follow-up with [employer] for further management of your fibroid. LIBRADO GONZALEZ PA-C May 21, 2017 20:13
[2017-05-21 20:28] VITALS: BP 119/74; PULSE 61; RESP 19; TEMP 97.9
== END 2017-05-21 20:28 | disposition home or self-care (01) ==
LOC: FTE 16:20
DX: K80.20 Calculus of gallbladder without cholecystitis without obstruction (principal); D25.9 Leiomyoma of uterus, unspecified; N39.0 Urinary tract infection, site not specified
CPT/HCPCS: 36415; 74176; 80053; 81001; 83690; 85025; 96374; 96375; J1885; J2405; Z7502